=== PATIENT | male | born 1995 | race Caucasian/White ===

== ENCOUNTER 2017-07-03 18:46 | Emergency (ER) | payer BC ==
[2017-07-03 19:19] VITALS: BP 137/94
[2017-07-03] MEDS ORDERED: Lidocaine 2% Jelly 5 ML Tube TOP ONE (19:28)
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
[2017-07-03] MEDS ORDERED: Midazolam 1 MG/ML 5 ML SDV IVPUSH ONE (20:46)
[2017-07-03] MEDS ORDERED: Sodium Chloride 0.9% 10 ML Syringe FLUSH PRN (20:46)
[2017-07-03] MEDS ORDERED: Midazolam 1 MG/ML 2 ML SDV ONE (20:54)
[2017-07-03] MEDS: fentaNYL 100 MCG/2 ML SDV IVPUSH ONE ×2 (21:33→21:44)
[2017-07-03] MEDS: Midazolam 1 MG/ML 2 ML SDV IVPUSH ONE ×3 (21:34→21:43)
[2017-07-03] MEDS ORDERED: Midazolam 1 MG/ML 2 ML SDV IVPUSH ONE (21:59)
== END 2017-07-03 22:58 | disposition home or self-care (01) ==
LOC: JD.ED 18:46
DX: T16.2XXA Foreign body in left ear, initial encounter (principal)
CPT/HCPCS: 69200; 96374; 96375; 99152; 99153; 99283; J2250; J3010

== ENCOUNTER 2019-04-09 10:58 | Emergency (ER) | payer BC ==
[2019-04-09 11:10] VITALS: BP 149/99
[2019-04-09] MEDS ORDERED: Ketorolac 30 MG/ML SDV IM ONE (11:26)
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
--- NOTE | 2019-04-11 10:51 | CR ---
Pelvis and right hip: AP view of the pelvis was obtained as well as AP and frog-leg lateral views of the right hip. Mild narrowing is seen superiorly within the left hip. Joint space within the right hip is preserved. Sacroiliac joints are within normal limits. No fracture or other bony abnormality is seen. Impression: 1. Mild joint space narrowing within the left hip. 2. AP pelvis and two-view right hip study is otherwise unremarkable. Diagnostic code #2 I agree with preliminary report from [facility], finalized on 04/09/19, 1:22 PM Central Time
== END 2019-04-09 12:46 | disposition home or self-care (01) ==
LOC: JD.ED 10:58
DX: S80.01XA Contusion of right knee, initial encounter (principal); S79.911A Unspecified injury of right hip, initial encounter; V80.010A Animal-rider injured by fall from or being thrown from horse in noncollision accident, initial encounter
CPT/HCPCS: 73502; 96372; 99283; J1885